=== PATIENT | female | born 1930 | race Caucasian/White ===

== ENCOUNTER 2016-08-27 13:18 | Inpatient (IN) | payer MEDICARE ==
[~2016-08-27] VITALS: Ht 170.2 cm; Wt 70.0 kg
--- NOTE | ~2016-08-27 | PNE ---
"ADMIT DATE: 08/27/16 ROOM#: Marko | MR#: [id number] | | [facility] KAREN THAKKAR | [place], [place] [address] | [facility] [id number] | | PHYSICAL THERAPY SEX: F AGE: 85 : 30 | PROGRESS NOTE EXTENSION Rehab Plan of Care Update Dr. Cox, This letter is regarding your patient Karen Thakkar at [facility], with an original goal date of 09/24/16. The patient has progressed, but would benefit from further safety with gait, transfers, and ADL training to allow for increased safety. We plan to extend this patient until 10/15/16 for treatment sessions. PT 5x/week Occupational Therapy will stop treatment at this time, but plan on resuming treatment on a daily basis once weightbearing status is advanced. Please let me know if you have any questions or concerns with these goals or patient's plan of care. Thank you, Mickie Sanderson, PT, DPT Therapist Signature: Date: Physician Signature: Date: "
--- NOTE | 2016-08-30 10:38 | NUR ---
INTERVIEW FOR MDS 3.0-PT. IS ALERT, SITTING IN HER RECLINER, CHEERFUL. KNOWS THE YEAR, MONTH AND DAY OF THE WEEK. PT. CAN REPEAT AND RECALL ALL THREE WORDS. PT. DENIES ANY DIFFICULTY WITH HER CONCENTRATION. COGNTION IS INTACT. PT. DENIES ANY DEPRESSION OR FEELING BAD ABOUT HERSELF. PT. STATES HER APPETITE ISN'T GOOD AT HOME AND STATES THE FOOD HERE IS DIFFERENT BUT STATES ITS OK AND GETTING ENOUGH FOOD. STATES SHE SLEEPS PRETTY GOOD AT NIGHT, NEEDING TO GET UP X 1 ONLY TO USE THE BATHROOM. STATES PRIOR TO COMING INTO SKILLED CARE SHE WAS INDEPENDENT IN HER HOME. STATES NOW SHE HAS LITTLE HELP GETTING DRESSED BUT OTHERWISE CAN CLEAN HERSELF UP IN THE BATHROOM AND NO DIFFICULTY WITH EATING. STATES THEY HELP HER WITH TRANFERING AND AMBULATING. HER GOAL IS TO RETURN HOME AND KNOWS AT FIRST SHE WILL NEED A LITTLE HELP BUT OTHERWISE OK. THEY JUST INSTALLED A WALK IN SHOWER IN HER HOME, GRAB BARS AND HIGH RISE TOILET. LIKES TO CHOOSE HER CLOTHES FOR THE DAY, TOOK A BATH PRIOR TO HER FALL BUT NOW LIKES SHOWER AND LOOKING FORWARD TO BEING ABLE TO USE HER WALK IN SHOWER. DOES NOT NEED TO USE THE PHONE IN PRIVATE OR LOCK UP HER PERSONEL ITEMS. LIKES TO HAVE SNACKS OCCASSIONALLY DURING THE DAY. DOES NOT READ THAT MUCH, LIKES TO WATCH TV AND KEEPS UP WITH THE NEWS AND WEATHER. LIKES PETS BUT DOES NOT HAVE ANY ANYMORE. LIKES TO DO THINGS IN GROUPS. WEDNESDAYS SHE GOES OUT AND HAS LUNCH WITH HER FRIENDS, COUNTS MONEY FOR THE JUDAISM ON MONDAYS, AND THEY HAVE A CABIN ON THE [place] SO THEY ARE OUT THERE ALOT IN THE WARMER MONTHS. STATES HER PAIN IS ONLY OCCASSIONAL, MORE LIKE MUSCLE CRAMPS IN HER LT. LEG. STATES IT WILL BOTHER HER SLEEP BUT DOES NOT USUALLY BOTHER WITH HER THERAPY. STATES IT CAN BE AROUND A 5 OR A 6 AND TYENOL USUSALLY GETS RID OF IT. BORN IN [facility], HAS BEEN 48 YEARS, HER FIRST AND HER HAD A DTR THAT AFTER A FEW DAYS FROM . HER NOW OF 48 YEARS HAS 2 DTRS, SO THEY HAVE GRAND CHILDREN AND IN-LAWS. WORKED WITH HER FATHER AND BROTHER IN A [employer] AND SHE WORKED WITH THEM FOR MORE THEN 40 YEARS. STATES EVERYONE HERE TREATS HER WELL, SHE HAS BEEN HAPPY WITH HER STAY HERE. THANKED PT. FOR NICE VISIT AND INTERVIEW. WISHED HER A GOOD DAY.
--- NOTE | 2016-08-31 15:38 | NUR ---
PATIENT NOTE JAMEEL HAS BEEN ADMITTED TO [facility]ILL[facility] FOR CONTINUED PHYSICAL AND OCCUPATIONAL THERAPY. SHE CAME TO US FOLLOWING HER LEFT HIP SURGERY AT [facility]. SHE HAS ALREADY SPENT 18 DAYS AT [facility]. JAMEEL IS A ALERT, APPROPRIATE AND VERY PLEASANT 85 YEAR OLD WHO LIVES HERE IN [place] WITH HER JOSÉ. HER GOAL/PLAN IS TO RETURN TO HOME WHEN SHE CAN CARE FOR HERSELF OR NEEDING MINIMAL ASSISTANCE. RANDEE DID INFORM ME THAT THEY ARE HAVING THEIR BATHROOM REMODLED SO THIS WILL BE DONE PRIOR TO HER COMING HOME. JAMEEL IS HERE UNDER HER MEDICARE [place] WITH THERAPY THE SKILLED SERVICE. SOCIAL WORK TO FOLLOW AND ASSIST WITH D/C PLANNING AND WITH CONCERNS OR NEEDS THAT MAY ARISE.
--- NOTE | 2016-09-16 02:00 | NUR ---
alarm going off pt trying to shut the alarm on wall- was on the bed-ask what he was doing -he said nothing help to the bathroom remind to use call light-fitness sales associate help him to bed
--- NOTE | 2016-10-15 14:02 | NUR ---
PATIENT NOTE FOLLOWING A [address] [facility] JAMEEL HAS BEEN D/C TO HER HOME. SHE IS NOW FWB STATUS AND WILL BE ABLE TO CARE FOR HERSELF WITH MINIMAL ASSISTANCE FROM HER RANDEE. HER OUTPT. THERAPY WILL BEGIN ON WEDNESDAY 10/18 AT 8AM AND RANDEE IS WILLING TO BE HER TRANSPORTATION. SHE HAS HER OWN WALKER THAT DID GO HOME WITH HER. JAMEEL REMAINS ALERT AND ORIENTED. SHE REMAINED ACTIVE THROUGHOUT HER STAY WITH ACTIVITIES, THERAPY AND FAMILY/FRIENDS VISIT. JAMEEL WAS THANKFUL FOR THE CARE AND VOICED NO CONCERNS WITH HER CARE OR STAY. I WISHED HER WELL AT HOME.
--- NOTE | 2016-10-15 15:20 | NUR ---
called in toprol to [facility]
[2016-10-15] MEDS ORDERED: LIPITOR DPS10 MG PO (18:32)
[2016-10-15] MEDS ORDERED: ASA CHILDREN'S81 MG PO (18:32)
[2016-10-15] MEDS ORDERED: PROAIR HFA8.5 GM IH (18:33)
[2016-10-15] MEDS ORDERED: CALTRATE-600 W600 MG PO (18:33)
[2016-10-15] MEDS ORDERED: COLACE-DPS100 MG PO (18:33)
[2016-10-15] MEDS ORDERED: THERA1 EACH PO (18:33)
[2016-10-15] MEDS ORDERED: SYNTHROID DPS0.05 MG PO (18:33)
[2016-10-15] MEDS ORDERED: SENOKOT S1 TAB PO (18:34)
[2016-10-15] MEDS ORDERED: MUCINEX600 MG PO (18:34)
[2016-10-15] MEDS ORDERED: TOPROL XL DPS25 MG PO (18:34)
[2016-10-15] MEDS ORDERED: MIRALAX PACKET17 GM PO (18:34)
[2016-10-15] MEDS ORDERED: MAALOX DPS30 ML PO (18:34)
[2016-10-15] MEDS ORDERED: TYLENOL DPS325 MG PO (18:35)
[2016-10-15] MEDS ORDERED: ANALGESIC BALM30 GM TP (18:35)
[2016-10-15] MEDS ORDERED: TUMS DPS500 MG PO (18:35)
[2016-10-15] MEDS ORDERED: SPORTS CREAM85 GM TP (18:36)
== END 2016-10-15 13:59 | disposition home or self-care (01) | DRG 560 ==
LOC: SNU 13:18
PROVIDERS: ADMIT Internal Medicine
PROC: F07M3ZZ Motor Function Treatment of Musculoskeletal System - Whole Body (ICD-10-PCS; principal; 2016-08-27)
PROC: F08Z4ZZ Home Management Treatment (ICD-10-PCS; principal; 2016-08-27)
PROC: F06ZDZZ Swallowing Dysfunction Treatment (ICD-10-PCS; principal; 2016-08-27)
DX: S72.142D Displaced intertrochanteric fracture of left femur, subsequent encounter for closed fracture with routine healing (principal); D62 Acute posthemorrhagic anemia; J44.9 Chronic obstructive pulmonary disease, unspecified; D53.9 Nutritional anemia, unspecified; R51 Headache; F41.9 Anxiety disorder, unspecified; K59.09 Other constipation; M19.90 Unspecified osteoarthritis, unspecified site; R00.0 Tachycardia, unspecified; E03.9 Hypothyroidism, unspecified; E78.2 Mixed hyperlipidemia; R73.03 Prediabetes; K21.9 Gastro-esophageal reflux disease without esophagitis; K57.90 Diverticulosis of intestine, part unspecified, without perforation or abscess without bleeding; Z86.718 Personal history of other venous thrombosis and embolism; Z86.711 Personal history of pulmonary embolism; Z11.1 Encounter for screening for respiratory tuberculosis

== ENCOUNTER → 2016-11-30 | Outpatient (CLI) | payer MEDICARE ==
[~2016-11-30] MED LIST: ANALGESIC BALM30 GM TP; ASA CHILDREN'S81 MG PO; CALTRATE-600 W600 MG PO; COLACE-DPS100 MG PO; LIPITOR DPS10 MG PO; MAALOX DPS30 ML PO; MIRALAX PACKET17 GM PO; MUCINEX600 MG PO; PROAIR HFA8.5 GM IH; SENOKOT S1 TAB PO; SPORTS CREAM85 GM TP; SYNTHROID DPS0.05 MG PO; THERA1 EACH PO; TOPROL XL DPS25 MG PO; TUMS DPS500 MG PO; TYLENOL DPS325 MG PO
== END | disposition home or self-care (01) ==
LOC: RAD.S 12:46
DX: J84.9 Interstitial pulmonary disease, unspecified (principal); R91.1 Solitary pulmonary nodule; R06.02 Shortness of breath; J47.9 Bronchiectasis, uncomplicated; R91.8 Other nonspecific abnormal finding of lung field